=== PATIENT | female | born 1970 | race Caucasian/White ===

== ENCOUNTER 2019-04-23 09:51 | Day surgery (SDC) | payer OTHER ==
[~2019-04-23] VITALS: Ht 157.5 cm; Wt 63.0 kg
[2019-04-23] VITALS (16 sets, daily range): BP systolic 84–116; BP diastolic 51–92; PULSE 76–108; RESP 12–54; Ht 157.5 cm; Wt 63.0 kg
[~2019-04-23 09:51] MED LIST: CEFAZOLIN SODIUM 2GM/D5W 50 X1 IVPB ONE; SOD CHLORIDE 0.9% 1,000 ML IV SCH
[2019-04-23] MEDS ORDERED: BUPIVACAINE 0.25%/EPI (SDV) 10 ML INJ ONE (11:03)
[2019-04-23] MEDS ORDERED: SEVOFLURANE 15 MIN ONE (11:29)
[2019-04-23] MEDS ORDERED: MEPERIDINE 100 MG INJ ONE (11:29)
[2019-04-23] MEDS ORDERED: LIDOCAINE 2% (SDV) 5 ML INJ ONE (11:29)
[2019-04-23] MEDS ORDERED: SUCCINYLCHOLINE CHLORIDE 100 MG/5 ML SYG IV ONE (11:29)
[2019-04-23] MEDS ORDERED: NEOSTIGMINE 3 MG/3 ML SYRINGE ONE (11:29)
[2019-04-23] MEDS ORDERED: PROPOFOL 20 ML ONE (11:29)
[2019-04-23] MEDS ORDERED: GLYCOPYRROLATE 0.4 MG INJ ONE ×2 (11:29→13:46)
[2019-04-23] MEDS ORDERED: ROCURONIUM 50 MG INJ ONE (11:29)
[2019-04-23] MEDS ORDERED: POLYMYXIN/BACITRACIN 1L IRRIG IRR ONE (12:10)
[2019-04-23] MEDS ORDERED: CEFAZOLIN 1 GM INJ ONE (13:46)
[2019-04-23] MEDS ORDERED: METOCLOPRAMIDE 10 MG INJ ONE (13:46)
[2019-04-23] MEDS ORDERED: ONDANSETRON 4 MG INJ ONE (13:46)
[2019-04-23] MEDS ORDERED: EPHEDrine 25 MG/5 ML SYG IV PRN (14:30)
[2019-04-23] MEDS ORDERED: hydrALAzine 20 MG INJ IV PRN (14:30)
[2019-04-23] MEDS ORDERED: FENTAnyl 50 MCG/ML VIAL IV PRN ×3 (14:30)
[2019-04-23] MEDS ORDERED: ONDANSETRON 4 MG INJ IV PRN ×2 (14:30)
[2019-04-23] MEDS ORDERED: MEPERIDINE 25 MG INJ IV PRN (14:30)
[2019-04-23] MEDS ORDERED: morphine 2 MG INJ IV PRN (14:30)
[2019-04-23] MEDS ORDERED: KETOROLAC 30 MG INJ IV PRN (14:30)
[2019-04-23] MEDS ORDERED: IBUPROFEN 600 MG TAB PO PRN (14:30)
[2019-04-23] MEDS ORDERED: HYDROCODONE/APAP (5/325) TAB PO PRN ×2 (14:30)
[2019-04-23] MEDS ORDERED: HYDROmorphONE 1 MG/5 ML IV SYRINGE IV PRN ×3 (14:30)
[2019-04-23] MEDS ORDERED: LABETALOL HCL 20MG INJ IV PRN (14:30)
[2019-04-23] MEDS ORDERED: OXYCODONE/ACETAMINOPHEN (5/325) TAB PO PRN ×2 (14:30)
[2019-04-23] MEDS ORDERED: MIDAZOLAM 1 MG/ML 2 ML INJ IV PRN (14:30)
[2019-04-23] MEDS ORDERED: DIPHENHYDRAMINE 50 MG INJ IV PRN (14:30)
[2019-04-23] MEDS ORDERED: METOCLOPRAMIDE 10 MG INJ IV PRN (14:30)
== END 2019-04-23 16:55 | disposition home or self-care (01) ==
LOC: SDS 09:51
PROVIDERS: ATTEND Surgery
DX: K42.0 Umbilical hernia with obstruction, without gangrene (principal); K43.9 Ventral hernia without obstruction or gangrene; J45.909 Unspecified asthma, uncomplicated
CPT/HCPCS: 49587; 88302; C1781; J0690; J2175; J2405; J2710; J2765; Z7512; Z7610